=== PATIENT | male | born 1980 | race American Indian/Alaskan Native ===

== ENCOUNTER 2018-11-11 08:17 | Emergency (ER) | payer SELFPAY ==
--- NOTE | 2018-11-11 08:22 | EDPHY ---
HPI/HX/ROS/PE/MDM Narrative: CHIEF COMPLAINT: Alcohol recovery, history of seizures. HPI: This patient is a 38-year-old male with history of seizures and alcoholism. He arrives today via EMS for medical clearance prior to entering an alcohol recovery facility. Earlier today, he walked into the police department requesting assistance with alcohol detox. He has history of seizures and alcohol withdrawal symptoms, and takes Keppra daily. Police requested he present for medical clearance. The patient admits to consuming approximately 750mL of whiskey recently, but is unclear on a more precise timeline for this. He denies any recent trauma or illness and has no specific complaints other than his wish for alcohol detox. REVIEW OF SYSTEMS: A comprehensive 10 system review of systems is otherwise negative aside from elements mentioned in the history of present illness and medical decision making. PMH: Seizure disorder, alcohol abuse. SOCIAL HISTORY: Lives in [place]. Occasional tobacco use. History of alcohol abuse. PHYSICAL EXAM: General:Patient is alert, in no acute distress. ENT:Eyes are normal to inspection. ENT inspection normal. Neck: Normal inspection. Full range of motion. Respiratory:No respiratory distress. Breath sounds normal bilaterally. Cardiovascular: Regular rate and rhythm. Strong peripheral pulses. Normal cap refill. Abdomen:The abdomen is nontender to palpation. There are no peritoneal signs. There are normal bowel sounds. Back: Normal to inspection. No tenderness to palpation. Skin: Normal color. No rash. Warm and dry. Extremities: Normal appearance. Full range of motion. Neuro: Oriented x3. Normal motor function. Normal sensory function. ED Course: 8:18 [facility] on arrival. 38 y/o male presents for medical clearance prior to alcohol detox. He currently has no complaints. Plan for breathalyzer treatment. EtOH 272. 08:30 Patient is medically cleared for detox. Plan to [facility] to the [facility] in good condition. Follow up and return precautions discussed. He is comfortable with this plan. General Initial Vital Signs: Initial Vital Signs Temperature (C) 36.6 C 11/11/18 08:20 Heart Rate 85 11/11/18 08:20 Respiratory Rate 16 11/11/18 08:20 Blood Pressure 119/71 11/11/18 08:20 O2 Sat (%) 98 11/11/18 08:20 O2 Delivery Mode Room Air Allergies/Adverse Reactions: No Known Allergies Allergy (Unverified 11/11/18 08:20) Home Medications: Medication Instructions Recorded Jose Ramon 11/11/18 Departure - Departure Disposition: Home, Routine, Self-Care Clinical Impression: Alcoholic intoxication Qualifiers: Complication of substance-induced condition: uncomplicated Qualified Code(s): F10.920 - Alcohol use, unspecified with intoxication, uncomplicated Alcohol dependence Qualifiers: Substance use status: uncomplicated Qualified Code(s): F10.20 - Alcohol dependence, uncomplicated Instructions: Abuse of Alcohol (ED) Additional Instructions: Please refrain from abusing alcohol. Return to the emergency department immediately for fever, vomiting, confusion, headache, abdominal pain or other worsening of condition. Followup with your primary care physician within 72 hours for reevaluation. Referrals: [facility] [Outside] - As per Instructions Report Scribed for: Chaka Solis Report Scribed by: Yakelin Ramos Date of Report: 11/11/18 Time of Report: 08:36 Physician Review and Approval Statement: Portions of this note were transcribed by an ED scribe. I personally performed the history, physical exam, and medical decision making; and confirm the accuracy of the information in the transcribed note.
[2018-11-11] MEDS ORDERED: CHLORDIAZEPOXIDE 25MG PREPK#6 BTL TAKEHOME ONE (08:55)
[2018-11-11 09:17] VITALS: BP 118/68
== END 2018-11-11 09:37 | disposition home or self-care (01) ==
DX: F10.920 Alcohol use, unspecified with intoxication, uncomplicated (principal); F10.20 Alcohol dependence, uncomplicated; G40.909 Epilepsy, unspecified, not intractable, without status epilepticus